=== PATIENT | male | born 1955 | race Caucasian/White ===

== ENCOUNTER → 2019-07-04 | Outpatient (CLI) | payer OTHER ==
--- NOTE | 2019-07-05 19:46 | CTL ---
EXAMINATION TYPE: CT Low Dose Lung DATE OF EXAM ORDERED: 07/04/2019 HISTORY: Long-term tobacco use. Lung cancer screening CT DLP: 103.[address] CTDI: 3.1 mGy Automated exposure control for dose reduction was used. SCREENING VISIT: Initial study COMPARISON: None TECHNIQUE: Low dose computed tomography scan was performed through the chest at 1 mm thick sections a nd reconstructed images in the coronal plane at [address] DIAGNOSTIC QUALITY: Satisfactory FINDINGS: LUNG NODULES: Present, detailed below: Right upper lung 5 x 3 mm anterior nodule axial image 118 near area of linear scarring favored postin flammatory A 3 x 3 mm left mid lung nodule near fissure axial image 147 LUNGS: COPD: Severity: Minimal Fibrosis: Severity: None Lymph nodes: No greater than 1 cm Other findings: None BILATERAL PLEURAL SPACE: Effusion: None Calcification: None Thickening: None Pneumothorax: None HEART: Heart Size: None Coronary calcification: Mild Pericardial effusion: Biopsy OTHER FINDINGS: Upper abdomen: Low dense rounded thickening left adrenal gland Hounsfield units less than 10 Favor small benign lipid rich adenoma axial image 282. Incidental splenule axial image 269. Bony thorax: Slight scoliotic curvature upper thoracic spine. Supraclavicular region: No suspicious findings. Other: Small degree of bilateral gynecomastia. IMPRESSION: Small nodules as detailed above. No greater than 6 mm pulmonary nodules. FOLLOW UP CT CHEST RECOMMENDATION: Annual low-dose lung screening CT. CT LUNG RAD: Lung-Rad 2 Benign Appearance or Behavior
== END ==
LOC: RADCTMAIN 08:35
PROVIDERS: ATTEND Nurse Practitioner Acute Care
DX: R91.8 Other nonspecific abnormal finding of lung field (principal); F17.200 Nicotine dependence, unspecified, uncomplicated

== ENCOUNTER → 2020-09-02 | Outpatient (CLI) | payer OTHER ==
--- NOTE | 2020-09-04 20:09 | CTL ---
EXAMINATION TYPE: CT Low Dose Lung DATE OF EXAM ORDERED: 09/02/2020 HISTORY: 64-year-old male Z87.891, History of tobacco dependence.. Lung cancer screening CT DLP: 75.[address] CTDI: 2.2 mGy Automated exposure control for dose reduction was used. SCREENING VISIT: First year after baseline COMPARISON: 07/04/2019 TECHNIQUE: Low dose computed tomography scan was performed through the chest at 1 mm thick sections and reconstructed images in the coronal and sagittal plane. CT DIAGNOSTIC QUALITY: Satisfactory FINDINGS: Heart normal size without pericardial effusion. Mild LAD coronary artery calcifications are present. Upper descending thoracic aorta is ectatic at 3.1 cm. There is bovine configuration to the aortic arch. 5 mm anterior right mid lung pulmonary nodule, axial image 144, unchanged. 5 mm anterior right mid to lower lung pulmonary nodule along the minor fissure, axial image 166, unchanged. 3 mm left mid lung pulmonary nodule along the major fissure, axial image 138, unchanged. Minimal scattered emphysematous change noted. No consolidation or pleural effusion. Mild dependent atelectasis along the posterior lungs Possible underlying thyroid isthmic nodule can be further evaluated with dedicated thyroid ultrasound. No thoracic lymphadenopathy by CT size criteria. Trace bilateral gynecomastia. Visualized upper abdomen shows stable 1.7 cm left renal nodularity suggesting underlying adrenal adenoma. Tiny anterior splenule. Bones: No osseous destructive process. IMPRESSION: 1. BI-RADS 2, benign. A few 5 mm and smaller pulmonary nodules unchanged from 07/04/2019. 2. COPD with minimal emphysema. 3. Suspected underlying thyroid isthmic nodule. RECOMMENDATION: 1. Continue annual low-dose lung cancer screening CT. 2. Dedicated thyroid ultrasound evaluation to exclude a thyroid nodule. 3. Smoking cessation. CT LUNG RAD AND CT CHEST RECOMMENDATION: Lung-Rad 2 Benign Appearance or Behavior: Continue annual screening with LDCT in 12 months. MTDD
== END | disposition home or self-care (01) ==
LOC: RADCTMAIN 16:17
DX: Z12.2 Encounter for screening for malignant neoplasm of respiratory organs (principal); J43.9 Emphysema, unspecified; R91.8 Other nonspecific abnormal finding of lung field; F17.210 Nicotine dependence, cigarettes, uncomplicated

== ENCOUNTER → 2020-11-04 | Outpatient (CLI) | payer OTHER ==
--- NOTE | 2020-11-05 07:42 | US ---
EXAMINATION TYPE: US thyroid st tissue head/neck DATE OF EXAM: 11/04/2020 COMPARISON: NONE CLINICAL HISTORY: E04.1 Thyroid nodule. Thyroid nodule per order. GLAND SIZE: Right Lobe: 5.3 x 1.7 x 1.8 cm Overall Parenchyma: heterogenous Left Lobe: 5.2 x 1.7 x 1.7 cm Overall Parenchyma: heterogeneous Isthmus Thickness: 0.6 cm NODULES RIGHT: # of nodules measured on right: 3 1. 0.8 X 0.9 x 0.6 cm cystic or almost completely cystic, anechoic nodule, which is wider than tall , with smooth margins, with echogenic focus. Prior size: No prior 2. 0.5 X 0.5 x 0.4 cm cystic or almost completely cystic, anechoic nodule, which is wider than tall , with smooth margins, with echogenic focus. Prior size: No prior 3. 0.4 X 0.4 x 0.4 cm solid or almost completely solid, hyperechoic nodule, which is as wide as it is tall, with ill-defined margins, without echogenic foci. Prior size: No prior LEFT: # of nodules measured on left: 2 1. 1.9 X 1.9 x 1.1 cm solid or almost completely solid, isoechoic nodule, which is wider than tall, with smooth margins, without echogenic foci. Prior size: No prior 2. 0.5 X 0.5 x 0.4 cm cystic or almost completely cystic, anechoic nodule, which is wider than tall , with smooth margins, without echogenic foci. Prior size: No prior ISTHMUS: # of nodules measured in the isthmus: 1 1. 1.3 X 1.3 x 0.9 cm cystic or almost completely cystic, anechoic nodule, which is wider than tall , with smooth margins, without echogenic foci. Prior size: No prior. Bilateral neck scanned, no evidence of lymphadenopathy. IMPRESSION: Solid left thyroid nodule measuring greater than 1 cm. Consider tissue diagnosis. Additional cystic nodules as outlined above.
== END | disposition home or self-care (01) ==
LOC: RADUSWWP 16:57
DX: E04.1 Nontoxic single thyroid nodule (principal); Z88.0 Allergy status to penicillin; Z88.8 Allergy status to other drugs, medicaments and biological substances
CPT/HCPCS: 76536

== ENCOUNTER → 2025-02-04 | Outpatient (CLI) | payer OTHER ==
--- NOTE | 2025-02-04 16:05 | CT ---
EXAMINATION TYPE: CT chest wo con DATE OF EXAM: 02/04/2025 COMPARISON: 09/02/2020 CLINICAL INDICATION: Male, 69 years old with history of R91.8 OTHER NONSPECIFIC ABNORMAL FINDING OF L DIVYA F; PHH, right sided chest/rib pain TECHNIQUE: CT scan of the thorax is performed without IV contrast. CT DLP: [address] CTDI: mGy Automated exposure control for dose reduction was used. FINDINGS: LUNGS: The lungs are grossly clear, there is no concerning parenchymal mass or nodule identified. T here is no pleural effusion or pneumothorax seen. The tracheobronchial tree is patent. MEDIASTINUM: Lack of IV contrast is noted to limit evaluation for mediastinal and especially hilar ad enopathy. There are no definitive greater than 1 cm hilar or mediastinal lymph nodes. No cardiomega ly or pericardial effusion is seen. There are a few scattered small sclerotic rib lesions which were seen previously and are stable. Limited scanning through the upper abdomen reveals no gross abnormality. IMPRESSION: 1. No acute cardiopulmonary disease. 2. There are a few stable scattered small sclerotic lesions in the bilateral ribs which were seen on the chest CT dated 09/02/2020. 3. No new abnormality seen. Follow-up recommendations for incidental pulmonary nodules are per [employer] or [employer]. [facility], Workstation: MAHI 02/04/2025 4:03 PM
== END | disposition home or self-care (01) ==
LOC: RADCTMAIN 15:09
PROVIDERS: ATTEND Internal Medicine
DX: R91.8 Other nonspecific abnormal finding of lung field (principal)
CPT/HCPCS: 71250

== ENCOUNTER → 2025-04-06 | Outpatient (CLI) | payer OTHER ==
[2025-04-06 16:25] LABS: African American GFR (CKD) 54 (>60 ml/min/1.73 sqM); Blood Urea Nitrogen 29 mg/dL (9-20); Non-African American GFR(CKD) 46 (>60 ml/min/1.73 sqM)
--- NOTE | 2025-04-06 21:42 | CT ---
EXAMINATION TYPE: CT urogram wo/w con CT DLP: 2196 mGycm, Automated exposure control for dose reduction was used. DATE OF EXAM: 04/06/2025 5:13 PM COMPARISON: CT chest 02/05/2020 CLINICAL INDICATION:Male, 69 years old with history of R31.0 BENIGN ESSENTIAL MICROSCOPIC HEMATURIA; PHH, SUSPECTED CANCER TECHNIQUE: Urogram of the abdomen and pelvis was performed before and after the administration of 100 cc of IV c ontrast Isovue 300 contrast. Delayed imaging was performed. Coronal and sagittal reformats were perfo rmed. One or more CT dose reduction strategies were utilized during this examination. 2D and 3D recon structions are performed to assist visualization of the urinary tract on a separate workstation. FINDINGS: GENITOURINARY: RIGHT KIDNEY AND URETER: Nonobstructing right mid kidney 5 mm calculus. No hydronephrosis or hydroure ter. No renal mass or other lesions. No urothelial lesions: no filling defect, dilation, stricture or wall thickening. LEFT KIDNEY AND URETER: No calculi. No hydronephrosis or hydroureter. No renal mass or other lesions. No urothelial lesions: no filling defect, dilation, stricture or wall thickening. URINARY BLADDER: Normal, no calculi, mass or other lesions. REPRODUCTIVE: Enlarged prostate gland measuring 6.9 cm in transverse dimension. This indents upon the urinary bladder base.. ABDOMEN LIVER: Noncirrhotic morphology. Medial right hepatic lobe 2.9 cm lesion adjacent to the gallbladder f lynn. Demonstrates enhancement on delayed phases with homogeneous isoattenuating appearance on 10 min [place] delayed phase. GALLBLADDER AND BILE DUCTS: Unremarkable PANCREAS: Unremarkable. SPLEEN: Unremarkable. ADRENAL GLANDS: Subtle thickening of the right adrenal gland likely representing hyperplasia. Left ad renal gland 2.4 cm low density lesion with Hounsfield unit of -4. Consistent with a benign lipid rich adenoma. STOMACH AND BOWEL: Scattered distal colonic diverticulosis without evidence for acute diverticulitis. No focal bowel wall thickening or surrounding inflammatory changes.. No evidence of bowel obstructio n. PERITONEUM: No evidence of pneumoperitoneum, free fluid, or adenopathy. VASCULATURE: No aortic aneurysm. Mild atherosclerotic calcification of the aorta and its branches. MUSCULOSKELETAL: No acute osseous abnormalities. Sclerotic foci within the right proximal femur and r ight iliac bone likely representing benign bone islands. SOFT TISSUE/ABDOMINAL WALL: Unremarkable. LOWER CHEST: No significant findings. IMPRESSION: 1. No evidence of renal/urothelial neoplasm. 2. Nonobstructing right renal calculus. 3. Marked prostatomegaly. Correlate with PSA values. 4. Medial right hepatic lobe 2.9 cm enhancing lesion. Nonspecific characteristics with a variety of etiologies. Recommend further evaluation with MR abdomen with IV contrast (liver mass protocol). 5. Colonic diverticulosis without evidence for acute diverticulitis. 6. Left adrenal gland 2.4 cm lesion with characteristics consistent with a benign lipid rich adenoma . [facility], , 04/06/2025 9:40 PM
== END | disposition home or self-care (01) ==
LOC: RADCTMAIN 15:18
PROVIDERS: ATTEND Urology
DX: N20.0 Calculus of kidney (principal); N40.0 Benign prostatic hyperplasia without lower urinary tract symptoms; K57.30 Diverticulosis of large intestine without perforation or abscess without bleeding; E27.8 Other specified disorders of adrenal gland; K76.89 Other specified diseases of liver
CPT/HCPCS: 82565; 84520; 74178; 36415; 74400; Q9967